=== PATIENT | male | born 1960 | race Caucasian/White ===

== ENCOUNTER 2017-03-12 16:14 | Emergency (ER) | payer OTHER ==
[2017-03-12 16:21] VITALS: BP 139/78; PULSE 74; RESP 18; TEMP 98; O2SAT 97
--- NOTE | 2017-03-12 16:29 | EDPHY ---
H & P Time Seen by Provider: 03/12/17 16:19 HPI/ROS: CHIEF COMPLAINT: Right leg swelling HISTORY OF PRESENT ILLNESS: Patient had a 10 hour car ride on March 04. No chest pain or shortness of breath. No trauma or injury. Today noted pain in his right calf which has gotten worse over the day. It is associated with some swelling and a 2 cm bruise noticed on the skin on the medial proximal portion. Worse with weight-bearing or palpation. Symptoms mild to moderate. REVIEW OF SYSTEMS: Cardiac: no chest pain or syncope Pulmonary: no cough or SOB, no hemoptysis. Musculoskeletal: No foot pain or weakness or numbness in the leg. Skin: Bruises noted above but no redness or lymphangitis. Neuro: No weakness or numbness in the foot. Constitutional: no fever PAST MEDICAL HISTORY: Hypertension and hyperlipidemia Social history: Here with spouse and daughter. General Appearance: Alert and conversant, cooperative. Neurological: Alert and oriented x3. Normally conversant. Normal dorsiflexion and plantar flexion in both extremities, ambulatory. Normal sensation to light touch in both feet. Skin: 2 cm diameter ecchymosis seen in the skin on the proximal medial calf. No redness or warmth and no lymphangitis. Musculoskeletal: Right calf more swollen than the left but compartments are soft. No bony tenderness in either leg. Normal range of motion of both knees and ankles. Foot is normal in temperature. Dorsalis pedal pulses are present bilaterally. Emergency Department course/MDM: Unlikely to be compartment syndrome or fracture or arterial occlusion or infection. Ultrasound to evaluate for DVT. 1729: Bakers cyst on US, no DVT, Burt. Diagnosis and symptomatic treatment discussed with the patient. Primary care and/or orthopedic follow-up. Smoking Status: Never smoked Constitutional: Initial Vital Signs Temperature (C) 36.6 C 03/12/17 16:19 Heart Rate 74 03/12/17 16:19 Respiratory Rate 18 03/12/17 16:19 Blood Pressure 139/78 H 03/12/17 16:19 O2 Sat (%) 97 03/12/17 16:19 O2 Delivery Mode Room Air Allergies/Adverse Reactions: No Known Allergies Allergy (Unverified 03/12/17 16:17) Home Medications: Medication Instructions Recorded Alluprinal 03/12/17 Aspirin 03/12/17 Lipitor 03/12/17 Zocor 03/12/17 Medical Decision Making - Diagnostics Imaging Results: Imaging Impressions Extremity Venous Study 03/12/17 16:26 Impression: 1. There is no sonographic evidence of deep or superficial vein thrombosis in the right lower extremity. 2. There is a mildly complex 2.3 cm Mathur cyst in the posteromedial popliteal fossa. Findings were discussed with ELLIS CLAY MD at 17:26, on 03/12/2017. Departure - Departure Disposition: Home, Routine, Self-Care Clinical Impression: Mathur's cyst Qualifiers: Laterality: right Qualified Code(s): M71.21 - Synovial cyst of popliteal space [Mathur], right knee Condition: Good Instructions: Bakers Cyst (ED) Referrals: Tom Booker MD [Primary Care Provider] - As per Instructions Zack Rojas MD [Medical Doctor] - 3-4 days, if not improved (ortho referral)
== END 2017-03-12 17:39 | disposition home or self-care (01) ==
LOC: CED 16:14
DX: M71.21 Synovial cyst of popliteal space [Baker], right knee (principal); I10 Essential (primary) hypertension; Z79.82 Long term (current) use of aspirin
CPT/HCPCS: 93971-PO